=== PATIENT | male | born 1965 | race Caucasian/White ===

== ENCOUNTER 2018-09-29 14:51 | Emergency (ER) | payer MEDICARE, MEDICAID ==
[~2018-09-29] VITALS: Wt 88.4 kg
[2018-09-29] MEDS ORDERED: VANCOMYCIN 1 GM (PMX) 250 ML IVPB ONE (16:00)
[2018-09-29] MEDS ORDERED: SULF1TAB31 PO (17:11)
--- NOTE | 2018-09-29 17:15 | ERD ---
ER Documentation Chief Complaint Chief Complaint rle edema and redness HPI 53-year-old male presents the emergency room complaining of bilateral leg redness. Patient is a very poor tangential historian. He states he has had increasing swelling redness and discomfort in his legs over the last few days. He has paperwork in his bag from an outside emergency department as well as an antibiotic which he states he has not filled. He denies fevers or chills. He denies trauma. Denies any abdominal pain or chest pain or any other symptoms. ROS All systems reviewed and are negative except as per history of present illness. Medications Home Meds Active Scripts Sulfamethoxazole/Trimethoprim* (Bactrim Ds* Tablet) 1 Each Tablet, 1 TAB PO BID, #14 TAB Prov:DES HENRY 09/29/18 Allergies Allergies: Coded Allergies: No Known Allergy (Unverified , 09/29/18) PMhx/Soc Medical and Surgical Hx: pt denies Medical Hx, pt denies Surgical Hx Hx Alcohol Use: No Hx Substance Use: No Hx Tobacco Use: No Smoking Status: Never smoker FmHx Unknown at this time Physical Exam Vitals Vital Signs Date Temp Pulse Resp B/P (MAP) Pulse Ox O2 O2 Flow FiO2 Time Delivery Rate 09/29/18 97.9 74 20 133/68 98 14:55 (89) Physical Exam GENERAL: The patient is well developed and appropriate for usual state of health in no apparent distress HEENT: Pupils equal, round, and reactive to light. EOMI. There is no scleral icterus. NECK: C-spine is soft and supple, there is no meningismus. There is no cervical lymphadenopathy. LUNGS: Clear to auscultation bilaterally. There are no rales, wheezes or rhonchi. HEART: Regular rate and rhythm, no murmurs, clicks, rubs or gallops. ABDOMEN: Soft, non-tender, non-distended. There are bowel sounds in all four quadrants. No rebound or guarding. No organomegaly EXTREMITIES: 2+ edema bilaterally. He has what appears to be a cellulitis in both lower extremities. NEURO: The patient moves all four extremities with 5/5 strength. Cranial nerves II - XII are intact. Normal gait. Alert and oriented SKIN: There is no apparent rash or petechiae. HEME/LYMPHATIC: There is no evidence of excessive bruising or lymphedema. PSYCHIATRIC: Somewhat bizarre tangential affect and demeanor. No suicidal or homicidal thoughts. No agitation. Result Diagram: 09/29/18 1555 09/29/18 1555 Results 24 hrs Laboratory Tests Test 09/29/18 15:55 09/29/18 16:15 White Blood Count 6.3 10^3/ul Red Blood Count 3.70 10^6/ul Hemoglobin 11.6 g/dl Hematocrit 33.7 % Mean Corpuscular Volume 91.1 fl Mean Corpuscular Hemoglobin 31.4 pg Mean Corpuscular Hemoglobin Concent 34.4 g/dl Red Cell Distribution Width 12.8 % Platelet Count 301 10^3/UL Mean Platelet Volume 9.1 fl Immature Granulocytes % 0.200 % Neutrophils % 65.3 % Lymphocytes % 19.5 % Monocytes % 6.7 % Eosinophils % 7.5 % Basophils % 0.8 % Nucleated Red Blood Cells % 0.0 /100WBC Immature Granulocytes # 0.010 10^3/ul Neutrophils # 4.1 10^3/ul Lymphocytes # 1.2 10^3/ul Monocytes # 0.4 10^3/ul Eosinophils # 0.5 10^3/ul Basophils # 0.1 10^3/ul Nucleated Red Blood Cells # 0.0 10^3/ul Prothrombin Time 12.6 Sec Prothrombin Time Ratio 1.0 INR International Normalized Ratio 0.93 Activated Partial Thromboplast Time 31.0 Sec Urine Color YELLOW Urine Clarity CLEAR Urine pH 6.0 Urine Specific [place] 1.010 Urine Ketones NEGATIVE mg/dL Urine Nitrite NEGATIVE mg/dL Urine Bilirubin NEGATIVE mg/dL Urine Urobilinogen NEGATIVE mg/dL Urine Leukocyte Esterase NEGATIVE Stephani/ul Urine Hemoglobin NEGATIVE mg/dL Urine Glucose NEGATIVE mg/dL Urine Total Protein NEGATIVE mg/dl Sodium Level 135 mmol/L Potassium Level 3.8 mmol/L Chloride Level 103 mmol/L Carbon Dioxide Level 23 mmol/L Anion Gap 9 Blood Urea Nitrogen 16 mg/dl Creatinine 0.80 mg/dl Est Glomerular Filtrat Rate mL/min > 60 mL/min Glucose Level 78 mg/dl Calcium Level 8.9 mg/dl Total Bilirubin 0.5 mg/dl Direct Bilirubin 0.00 mg/dl Indirect Bilirubin 0.5 mg/dl Aspartate Amino Transf (AST/SGOT) 68 IU/L Alanine Aminotransferase (ALT/SGPT) 54 IU/L Alkaline Phosphatase 85 IU/L Troponin I < 0.012 ng/ml Total Protein 7.1 g/dl Albumin 3.9 g/dl Globulin 3.20 g/dl Albumin/Globulin Ratio 1.21 POC Venous Lactate 0.8 mmol/L Current Medications Medications Dose Sig/[place] Start Time Status Last (Trade) Ordered Route PRN Stop Time Admin Dose Reason Admin Vancomycin 250 ml @ ONCE ONCE 09/29/18 09/29/18 HCl 125 mls/hr IVPB 16:00 16:11 09/29/18 17:59 Procedures/MDM Patient was taken to a room, seen and evaluated. Comfort measures were initiated. Diagnostic tests were ordered and reviewed. 3 LEAD RHYTHM STRIP: Normal sinus rhythm without ectopy EK lead EKG reviewed by myself: Normal Sinus Rhythm Normal [place] and intervals No ST elevation, depression, or T wave inversion Impression: Normal EKG RADIOLOGY: Reviewed with the radiologist REEVALUATION: 1710: Diagnostic tests were appreciated. Antibiotics were provided. Patient seemed appropriate for discharge. MEDICAL DECISION MAKIN-year-old male with what appears to be questionable underlying psychiatric comorbid conditions presents the emergency department what appears to be a mild bilateral lower extremity cellulitis. Patient has no indications of deep space tissue infection or fasciitis. He has a normal white count and does not appear to be septic or toxic in any way. He states he has an outpatient follow-up available to him and seems appropriate for discharge at this time. Departure Diagnosis: Primary Impression: Cellulitis Condition: Stable Patient Instructions: Cellulitis Additional Instructions: See your doctor for follow-up as discussed. Take a copy of your test results, if appropriate, to this follow-up visit. See your doctor or return here if your symptoms do not improve as expected. At any time, please return to the emergency department for any change or worsening in her symptoms. DES HENRY Sep 29, 2018 17:15
[2018-09-29 18:14] VITALS: BP 126/89; PULSE 88; RESP 16
== END 2018-09-29 18:41 | disposition home or self-care (01) ==
LOC: E/R 14:51
DX: L03.115 Cellulitis of right lower limb (principal); L03.116 Cellulitis of left lower limb; R50.9 Fever, unspecified; M79.604 Pain in right leg
CPT/HCPCS: 71045; 80053; 81003; 83605; 84484; 85025; 85610; 85730; 87040; 87086; 93005; J3370; 36415; 96365; 96366